=== PATIENT | female | born 1930 | race Two or more races ===

== ENCOUNTER 2019-08-03 14:47 | Emergency (ER) | payer MEDICARE, MEDICAID ==
[~2019-08-03] VITALS: Ht 165.1 cm; Wt 64.9 kg
--- NOTE | 2019-08-03 14:50 | NUR ---
PT [id number] FRM HOME, PER REPORT WITNESSED SYNCOPE WHILE HAVING BM. PT IS AAOX3 [id number] SPEAKING ONLY, NOT IN RESPIRATORY DISTRESS, HOOKED TO MONITOR, KEPT RESTED AND COMFORTABLE, WILL CONTINUE TO MONITOR.
--- NOTE | 2019-08-03 15:02 | NUR ---
AT BEDSIDE FOR EVAL.
--- NOTE | 2019-08-03 15:16 | NUR ---
BLOOD DRAWN AND SENT TO LAB.
[2019-08-03 15:23] LABS: BASOPHILS # (AUTO) 0.1 /CMM (0.0-0.2); BASOPHILS % (AUTO) 0.8 % (0.0-2.0); EOSINOPHILS % (AUTO) 5.1 % (0.0-6.0); HEMATOCRIT 39 % (33-45); HEMOGLOBIN 12.8 g/dL (11.5-14.8); LYMPHOCYTES # (AUTO) 1.3 /CMM (0.8-4.8); LYMPHOCYTES % (AUTO) 13.3 % (20.0-44.0); MEAN CORPUSCULAR HGB CONC 33 g/dl (31.0-36.0); MEAN CORPUSCULAR VOLUME 90 fL (82-100); MONOCYTES # (AUTO) 0.6 /CMM (0.1-1.30); MONOCYTES % (AUTO) 6.6 % (2.0-12.0); NEUTROPHILS # (AUTO) 7.2 /CMM (1.8-8.9); NEUTROPHILS % (AUTO) 74.2 % (43.0-81.0); PLATELET COUNT (AUTO) 399 /CMM (150-450); RED BLOOD CELL COUNT(AUTO) 4.28 MIL/uL (4.0-5.2); WHITE BLOOD COUNT (AUTO) 9.8 K/uL (4.3-11.0)
--- NOTE | 2019-08-03 15:30 | NUR ---
REPORT DEVELOPER AT BEDSIDE FOR XRAY.
--- NOTE | 2019-08-03 15:39 | NUR ---
URINAL GIVEN BUT UNABLE TO PROVIDE URINE SPECIMEN THIS TIME. PT RELATIVE REFUSE STRAIGHT CATH INSERTION.
[2019-08-03 15:45] LABS: CALCIUM, SERUM 9.1 mg/dL (8.5-10.1); CREATININE 0.8 mg/dL (0.6-1.3); POTASSIUM 3.4 mmol/L (3.5-5.1)
[2019-08-03 15:50] LABS: ALBUMIN 3.5 g/dL (3.4-5.0); BILIRUBIN,DIRECT 0.1 mg/dL (0.0-0.2); BILIRUBIN,TOTAL 0.3 mg/dL (0.2-1.0); TOTAL PROTEIN, SERUM 6.9 g/dL (6.4-8.2)
[2019-08-03] MEDS ORDERED: IOHEXOL-350 100 ML VIAL IV ONE (17:28)
--- NOTE | 2019-08-03 17:30 | NUR ---
PT IS WHEELED TO CT SCAN VIA [facility].
[2019-08-03 18:14] LABS: APPEARANCE,URINE CLEAR (CLEAR); BILIRUBIN,URINE NEGATIVE (NEGATIVE); BLOOD, URINE NEGATIVE Ery/uL (NEGATIVE); COLOR,URINE YELLOW (YELLOW); KETONES,URINE NEGATIVE (NEGATIVE); LEUKOCYTE ESTERASE ,URINE NEGATIVE (NEGATIVE); NITRITE, URINE NEGATIVE (NEGATIVE); PH,URINE 7.5 (5.0-8.0); PROTEIN,URINE NEGATIVE (NEGATIVE); UGLUCOSE NEGATIVE (NEGATIVE); UROBILINOGEN,URINE 0.2 EU/dL (0.2)
[2019-08-03] MEDS ORDERED: DOCUSATE SODIUM LIQ 100 MG/10 ML UDC ONE (18:22)
[2019-08-03] MEDS ORDERED: DOCUSATE SODIUM LIQ 100 MG/10 ML UDC NG ONE (18:30)
--- NOTE | 2019-08-03 18:46 | NUR ---
EMT AT BEDSIDE FOR EAR IRRIGATION.
--- NOTE | 2019-08-03 19:24 | NUR ---
IV removed. Catheter intact and site benign. Pressure and 4x4 applied to site. No bleeding noted. Patient discharged to home in stable condition. Written and verbal after care instructions given. Patient verbalizes understanding of instruction.
[2019-08-03 19:25] VITALS: BP 112/72
== END 2019-08-03 19:28 | disposition home or self-care (01) ==
LOC: ER 14:49
DX: R55 Syncope and collapse (principal); I10 Essential (primary) hypertension
CPT/HCPCS: 36415; 71275; 74022; 80048; 80076; 81001; 83880; 84484; 85025; 85378; 93005; 99284; Q9967; 81000-TC

== ENCOUNTER 2019-08-26 15:01 | Emergency (ER) | payer MEDICARE, OTHER ==
[~2019-08-26] VITALS: Ht 157.5 cm; Wt 64.9 kg
--- NOTE | 2019-08-26 15:09 | NUR ---
BIB FOR SYNCOPAL EPISODE, FAMILY CALLED 911, FAMILY STATES PATIENT HAS BEEN HAVING DIARRHEA, PATIENT C/O NAUSEA AND VOMITING. BS 220, TO ER BED 11, HOOKED TO MONITOR, CHANGED TO HOSP GOWN, PROVIDED W WARM BLANKET, AWAITING MD BAJWA.
--- NOTE | 2019-08-26 15:50 | NUR ---
DR ROGEL AT BEDSIDE
[2019-08-26] MEDS ORDERED: CITA10TA9 PO (15:59)
[2019-08-26] MEDS ORDERED: TRAM50TA2 PO (15:59)
[2019-08-26] MEDS ORDERED: CILO100T PO (15:59)
[2019-08-26] MEDS ORDERED: LOSA50TA39 PO (15:59)
[2019-08-26] MEDS ORDERED: METO25TA6 PO (15:59)
[2019-08-26] MEDS ORDERED: IV NS 0.9% 1,000 ML BAG IV ONE (16:00)
[2019-08-26 16:08] LABS: BASOPHILS # (AUTO) 0.1 /CMM (0.0-0.2); BASOPHILS % (AUTO) 0.8 % (0.0-2.0); EOSINOPHILS % (AUTO) 5.8 % (0.0-6.0); HEMATOCRIT 43 % (33-45); HEMOGLOBIN 14.1 g/dL (11.5-14.8); LYMPHOCYTES # (AUTO) 1.1 /CMM (0.8-4.8); LYMPHOCYTES % (AUTO) 12.3 % (20.0-44.0); MEAN CORPUSCULAR HGB CONC 33 g/dl (31.0-36.0); MEAN CORPUSCULAR VOLUME 91 fL (82-100); MONOCYTES # (AUTO) 0.6 /CMM (0.1-1.30); MONOCYTES % (AUTO) 6.3 % (2.0-12.0); NEUTROPHILS # (AUTO) 6.6 /CMM (1.8-8.9); NEUTROPHILS % (AUTO) 74.8 % (43.0-81.0); PLATELET COUNT (AUTO) 367 /CMM (150-450); RED BLOOD CELL COUNT(AUTO) 4.72 MIL/uL (4.0-5.2); WHITE BLOOD COUNT (AUTO) 8.8 K/uL (4.3-11.0)
[2019-08-26 16:19] LABS: CALCIUM, SERUM 9.4 mg/dL (8.5-10.1); CARBON DIOXIDE 28 mmol/L (21-32); CHLORIDE 98 mmol/L (98-107); CREATININE 0.9 mg/dL (0.6-1.3); GLUCOSE 198 mg/dL (74-106); POTASSIUM 4.3 mmol/L (3.5-5.1); SODIUM SERUM 136 mmol/L (136-145); UREA NITROGEN, BLOOD 14 mg/dL (7-18)
[2019-08-26 16:25] LABS: ALANINE AMINOTRANSFERASE 11 U/L (12-78); ALBUMIN 3.6 g/dL (3.4-5.0); ALKALINE PHOSPHATASE 87 U/L (46-116); ASPARTATE AMINOTRANSFERASE 11 U/L (15-37); BILIRUBIN,DIRECT 0.1 mg/dL (0.0-0.2); BILIRUBIN,TOTAL 0.3 mg/dL (0.2-1.0); LIPASE 85 U/L (73-393); TOTAL PROTEIN, SERUM 7.2 g/dL (6.4-8.2)
[2019-08-26] MEDS ORDERED: Z GUARD REMEDY 2 OZ OINT TP ONE (17:30)
[2019-08-26 18:06] LABS: APPEARANCE,URINE Clear (CLEAR); BILIRUBIN,URINE Negative (NEGATIVE); BLOOD, URINE Small Ery/uL (NEGATIVE); COLOR,URINE Yellow (YELLOW); KETONES,URINE Negative (NEGATIVE); LEUKOCYTE ESTERASE ,URINE Negative (NEGATIVE); NITRITE, URINE Negative (NEGATIVE); PH,URINE 6.5 (5.0-8.0); PROTEIN,URINE Negative (NEGATIVE); UGLUCOSE Negative (NEGATIVE)
[2019-08-26 18:13] LABS: BACTERIA,URINE Rare /HPF (None Seen); SQUAMOUS EPITHELIAL CELL,UR Few /HPF (None Seen); WBC,URINE NONE SEEN /HPF (0-3)
--- NOTE | 2019-08-26 18:52 | NUR ---
IV removed. Catheter intact and site benign. Pressure and 4x4 applied to site. No bleeding noted. Patient discharged to home with family in stable condition. Written and verbal after care instructions given. Patient and family verbalizes understanding of instruction.
--- NOTE | 2019-08-26 18:55 | NUR ---
Patient discharged to home in stable condition. Written and verbal after care instructions given. Patient verbalizes understanding of instruction.
--- NOTE | 2019-08-26 18:55 | NUR ---
IV removed. Catheter intact and site benign. Pressure and 4x4 applied to site. No bleeding noted.
[2019-08-26 18:57] VITALS: BP 115/65
== END 2019-08-26 18:57 | disposition home or self-care (01) ==
LOC: ER 15:06
DX: L97.929 Non-pressure chronic ulcer of unspecified part of left lower leg with unspecified severity (principal); R55 Syncope and collapse; I10 Essential (primary) hypertension; F03.90 Unspecified dementia, unspecified severity, without behavioral disturbance, psychotic disturbance, mood disturbance, and anxiety; Z79.899 Other long term (current) drug therapy
CPT/HCPCS: 36415; 71045; 80048; 80076; 81001; 83690; 84484; 85025; 85730; 87804 ×2; 93005; 93971 ×2; 96360; 99284; J7030; 81000-TC

== ENCOUNTER 2020-03-13 13:23 | Inpatient (IN) | payer MEDICARE, OTHER ==
[~2020-03-13] VITALS: Ht 157.5 cm; Wt 63.5 kg
[~2020-03-13 13:23] MED LIST: CILO100T PO; CITA10TA9 PO; LOSA50TA39 PO; METO25TA6 PO; TRAM50TA2 PO
[2020-03-13] MEDS ORDERED: IV NS 0.9% 500 ML BAG IV ONE (13:30)
[2020-03-13] MEDS ORDERED: OMEP20TA5 PO (13:35)
[2020-03-13] MEDS ORDERED: CLON0.1T PO (13:35)
--- NOTE | 2020-03-13 13:38 | NUR ---
GILBERTO FROM HOME TO ER BED 7. AAOX3. NOT IN RESP DISTRESS, BREATHING EVEN AND UNLABORED. BROUGHT IN FOR SYNCOPAL EPISODE. PER REPORT, PT WAS HAVING BM AND FOUND PT PASSED OUT. NO FALLS. NO TRAUMA. DENIES OF ANY PAIN. PT HOOKED ON MONITOR. MD WAS AT THE BEDSIDE FOR EVAL. ORDERS RECEIVED, NOTED AND CARRIED OUT. IV LINE OBTAINED ON L FOREARM 20G, BLOOD DRAWN AND GIVEN TO DICTAPHONE TYPIST AT BEDSIDE. EKG DONE BY EMT. PT ON MONITOR.
[2020-03-13 13:39] LABS: BASOPHILS # (AUTO) 0.1 /CMM (0.0-0.2); BASOPHILS % (AUTO) 0.5 % (0.0-2.0); EOSINOPHILS % (AUTO) 4.5 % (0.0-6.0); HEMATOCRIT 45 % (33-45); HEMOGLOBIN 14.7 g/dL (11.5-14.8); LYMPHOCYTES # (AUTO) 2.2 /CMM (0.8-4.8); LYMPHOCYTES % (AUTO) 17.4 % (20.0-44.0); MEAN CORPUSCULAR HGB CONC 32 g/dl (31.0-36.0); MEAN CORPUSCULAR VOLUME 92 fL (82-100); MONOCYTES # (AUTO) 0.7 /CMM (0.1-1.30); MONOCYTES % (AUTO) 5.9 % (2.0-12.0); NEUTROPHILS # (AUTO) 9.2 /CMM (1.8-8.9); NEUTROPHILS % (AUTO) 71.7 % (43.0-81.0); PLATELET COUNT (AUTO) 366 /CMM (150-450); RED BLOOD CELL COUNT(AUTO) 4.91 MIL/uL (4.0-5.2); WHITE BLOOD COUNT (AUTO) 12.8 K/uL (4.3-11.0)
--- NOTE | 2020-03-13 13:58 | NUR ---
AMEZCUA SWAB DONE AND SENT TO LAB
--- NOTE | 2020-03-13 14:03 | NUR ---
PLACED PT ON BED STEIN FOR URINE COLLECTION. PT IS UNABLE TO URINATE AT THIS TIME. MADE AWARE. COLLECT URINE WHEN PT HAVE THE URGE TO URINATE.
--- NOTE | 2020-03-13 14:24 | NUR ---
DAUGTHER GIVEN UPDATE RE PATIENT
[2020-03-13 14:29] LABS: CALCIUM, SERUM 9.1 mg/dL (8.5-10.1); CARBON DIOXIDE 22 mmol/L (21-32); CHLORIDE 99 mmol/L (98-107); CREATININE 1.1 mg/dL (0.6-1.3); GLUCOSE 264 mg/dL (74-106); POTASSIUM 3.5 mmol/L (3.5-5.1); SODIUM SERUM 134 mmol/L (136-145); UREA NITROGEN, BLOOD 10 mg/dL (7-18)
--- NOTE | 2020-03-13 14:31 | NUR ---
NURSING SUP CALLED FOR BED
[2020-03-13 14:35] LABS: ALANINE AMINOTRANSFERASE 9 U/L (12-78); ALBUMIN 3.7 g/dL (3.4-5.0); ALKALINE PHOSPHATASE 103 U/L (46-116); ASPARTATE AMINOTRANSFERASE 12 U/L (15-37); BILIRUBIN,DIRECT 0.1 mg/dL (0.0-0.2); BILIRUBIN,TOTAL 0.3 mg/dL (0.2-1.0)
[2020-03-13] MEDS ORDERED: CLONIDINE HCL 0.1 MG TABLET PO PRN (15:00)
[2020-03-13] MEDS ORDERED: TRAMADOL HCL 50 MG TABLET PO PRN (15:00)
--- NOTE | 2020-03-13 15:15 | NUR ---
ROOM ASSIGNMENT: 102-TELE
[2020-03-13] MEDS ORDERED: MAGNESIUM HYDROXIDE 30 ML UDC PO PRN (15:30)
[2020-03-13] MEDS ORDERED: ACETAMINOPHEN 325 MG TABLET PO PRN (15:30)
[2020-03-13] MEDS ORDERED: Z GUARD REMEDY 2 OZ OINT TP PRN (15:30)
[2020-03-13] MEDS ORDERED: ZOLPIDEM TARTRATE 5 MG TABLET PO PRN (15:30)
[2020-03-13] MEDS ORDERED: HYDROCODONE/APAP 5/325MG 1 EACH TABLET PO PRN (15:30)
[2020-03-13] MEDS ORDERED: ONDANSETRON HCL/PF 4 MG/2 ML VIAL IVP PRN (15:30)
[2020-03-13] MEDS ORDERED: MAG HYDROX/AL HYDROX/SIMETH 30 ML UDC PO PRN (15:30)
--- NOTE | 2020-03-13 15:37 | NUR ---
REPORT GIVEN TO REBEL MONZON FOR FRANCIS.
[2020-03-13 16:00] VITALS: BP 194/82
--- NOTE | 2020-03-13 16:00 | NUR ---
PT TRANSPORTED TO UNIT ON GURNEY WITH EMT AND RN AT BEDSIDE W/ ACLS PROTOCOL. NAD NOTE DURING TRANSPORT.
--- NOTE | 2020-03-13 16:05 | NUR ---
Received patient via [facility]. A/O x4, Uruguayan speaker, on room air, tolerating well, no s/sx of distress noted, no SOB. Denies pain, IV on r hand noted, patent and intact. Safety measures implemented, bed in lowest position, will cont to monitor
[2020-03-13] MEDS: METOPROLOL TARTRATE 25 MG TABLET PO SCH (16:41)
[2020-03-13 17:40] VITALS: BP 186/94
--- NOTE | 2020-03-13 18:40 | NUR ---
Patient BP is 186/94, charge nurse notified, called [facility] to reach MD
--- NOTE | 2020-03-13 19:30 | NUR ---
RN CLOSING NOTE Patient remains in bed, no change of status noted, tolerating room air well, with saturation of 100%, IV flushed and patent, skin is intact.Safety measures implemented, call light in reach, bed in lowest position, hob elevated, will endorse to PM shift RN for FRANCIS
--- NOTE | 2020-03-13 19:30 | NUR ---
telegraph office telephone clerk opening note received patient in isolation for suspected covid. received in bed. a/ox4. Moldovan speaking. tolerating room air. respirations are even and unlabored. no s/s sob noted. no /o pain at this. external tele monitor reads sinus north hr 56. in no apparent distress. iv access i left wrist #20 patent and saline locked.bed is low and locked, hob elevateed in semi fowlers, side rials up x2. call light within reach. informed patient on how to use call light. informed patient we need to collect a urine specimen. will continue to monitor.
[2020-03-13 20:00] VITALS: BP 188/81
--- NOTE | 2020-03-13 20:00 | NUR ---
program director cable television note patient refused temperature to be taken at 2000 vitals. explain risk and benefits, continues to refuse. states once when she came in should be sufficient enough. will try again at 0000 vital signs.
--- NOTE | 2020-03-13 20:21 | NUR ---
telephone switchboard operator note patients bp 185/92. informed MD that she received metoprolol 25mg at 1641. patient also stated has not taken home bp meds. MD telephone order hydralazine 10mg IV q4hr prn. order read back , noted and carried out.
[2020-03-13] MEDS ORDERED: hydrALAZINE HCL IV 20 MG VIAL IV PRN (20:30)
--- NOTE | 2020-03-13 22:19 | NUR ---
maintenance mechanic telephone note called molten iron pourer MD Dr. solis that patient is very agitated and anxious. she did not receive her celexa today. MD telephone ordered 10mg celexa PO one time as well as xanax 0.5mg PO one time. order read back noted and carried out.
[2020-03-13] MEDS ORDERED: ALPRAZOLAM 0.25 MG TABLET PO ONE (22:30)
[2020-03-13] MEDS ORDERED: CITALOPRAM HYDROBROMIDE 10 MG TABLET PO ONE (22:30)
[2020-03-14] VITALS (7 sets, daily range): BP systolic 119–182; BP diastolic 60–81
--- NOTE | 2020-03-14 00:49 | NUR ---
CONCRETE BATCHING PLANT OPERATOR NOTE INFORMED KNIFE BLADE POLISHER MD DR. HENRY THE PATIENTS VTE SCORE 3 AND IF HE'D LIKE TO ORDER ANY CHEMICAL PROPHYLAXIS, MD TELEPHONE ORDER HEPARIN 5000 UNITS SQ BID. ORDER READ BACK NOTED AND CARRIED OUT.
--- NOTE | 2020-03-14 03:27 | NUR ---
telegraphic typewriter mechanic note informed MD that patient removed her tele monitor. she was explained the purpose of the tele monitor, the risk the benefits and tried to reapply the tele box but patient continues to refuse and pull off leads. MD also informed that patient removed iv.
[2020-03-14 05:02] LABS: ALBUMIN 3.5 g/dL (3.4-5.0); BASOPHILS # (AUTO) 0.1 /CMM (0.0-0.2); BASOPHILS % (AUTO) 0.4 % (0.0-2.0); BILIRUBIN,TOTAL 0.4 mg/dL (0.2-1.0); CALCIUM, SERUM 9.1 mg/dL (8.5-10.1); CREATININE 0.6 mg/dL (0.6-1.3); EOSINOPHILS % (AUTO) 3.1 % (0.0-6.0); HEMATOCRIT 40 % (33-45); HEMOGLOBIN 13.3 g/dL (11.5-14.8); LYMPHOCYTES # (AUTO) 1.8 /CMM (0.8-4.8); LYMPHOCYTES % (AUTO) 13.8 % (20.0-44.0); MAGNESIUM 2.2 mg/dL (1.8-2.4); MEAN CORPUSCULAR HGB CONC 33 g/dl (31.0-36.0); MEAN CORPUSCULAR VOLUME 90 fL (82-100); MONOCYTES # (AUTO) 0.8 /CMM (0.1-1.30); MONOCYTES % (AUTO) 6.3 % (2.0-12.0); NEUTROPHILS % (AUTO) 76.4 % (43.0-81.0); PHOSPHORUS 2.9 mg/dL (2.5-4.9); PLATELET COUNT (AUTO) 349 /CMM (150-450); POTASSIUM 3.3 mmol/L (3.5-5.1); RED BLOOD CELL COUNT(AUTO) 4.49 MIL/uL (4.0-5.2); WHITE BLOOD COUNT (AUTO) 13.1 K/uL (4.3-11.0)
[2020-03-14 05:14] LABS: THYROID STIMULATING HORMONE 3.418 uIU/mL (0.358-3.74)
--- NOTE | 2020-03-14 06:21 | NUR ---
local telephone operator closing note isolation for suspected covid. in bed. a/ox3 tolerating room air. respirations are even and unlabored. no sob noted. no c/o pain t/o shift. removed tele monitor, educated, continues to refuse, md aware. no distress. iv access removed by patient, refuses another access, md aware .bed is low and locked, hob elevated in semi fowlers, side rials up x2. call light within reach. unable to obtain urine sample patient is incontinent. will endorse to next shift.
--- NOTE | 2020-03-14 07:10 | NUR ---
RN OPENING NOTES RECEIVED PATIENT SLEEPING IN BED. A/O X 1, CONFUSED. [place]IBR[place] SPEAKING. PATIENT REFUSES TELE MONITOR. PATIENT ON ROOM AIR TOLERATING WELL. NO S/S OF DISTRESS. NO SOB NOTED. NO IV NOTE. SAFETY MEASURES IN PLACED, BED IN LOWEST POSITION AND LOCKED, SIDE RAILS UP X 2. WILL CONTINUE TO MONITOR.
--- NOTE | 2020-03-14 07:30 | NUR ---
RN NOTE PATIENT REMOVES TELE MONITOR, EDUCATED PATIENT ON TELE , CONTINUES TO REFUSE.
[2020-03-14] MEDS: PANTOPRAZOLE 40 MG TABLET.DR PO SCH (08:07)
[2020-03-14] MEDS ORDERED: HEPARIN SODIUM, PORCINE 5000 UNITS/1 ML VIAL SQ SCH (09:00)
[2020-03-14] MEDS: LOSARTAN POTASSIUM 50 MG TABLET PO SCH (09:09)
[2020-03-14] MEDS: METOPROLOL TARTRATE 25 MG TABLET PO SCH ×2 (09:10→17:36)
[2020-03-14] MEDS: CILOSTAZOL 100 MG TABLET PO SCH ×2 (09:21→17:33)
[2020-03-14] MEDS: CITALOPRAM HYDROBROMIDE 10 MG TABLET PO SCH (09:21)
[2020-03-14] MEDS ORDERED: POTASSIUM CHLORIDE 20 MEQ TAB.PRT.SR PO SCH (10:00)
--- NOTE | 2020-03-14 12:00 | NUR ---
RN NOTES Patients daughter Carly called and she spoke to her mother. In addition daughter wants to speak with MD, RELATEd MESSAGE, MD made aware.
--- NOTE | 2020-03-14 15:50 | NUR ---
PATIENT REFUSED STRAIGHT CATH FOR URINE CX, MULTIPLE ATTEMPTS.
--- NOTE | 2020-03-14 18:07 | NUR ---
COLLECTED URINE,PLACED IN SPECIMEN FRIDGE, CALLED AND INFORMED LAB FOR STRESS ENGINEER
--- NOTE | 2020-03-14 19:18 | NUR ---
RN NOTES ENDORSED PATIENT TO PM NURSE. A/O X 1 CONFUSED, [place] SPEAKER. PATIENT REFUSED NEW IV, EDUCATED ON BENEFITS, STILL REFUSED. PATIENT REMOVED TELE MONITOR AND REFUSED TO KEEP IN PLACE, MD AWARE. NO S/S OF DISTRESS, NO SOB, SAFETY MEASURE IN PLACE, SIDE RAILS UP X 2, CALL LIGHT WITHIN REACH. .
--- NOTE | 2020-03-14 19:30 | NUR ---
RN OPENING NOTES Received the client resting in bed. A/O x3. The client has is refusing IV insertion. Client is refusing Chest leads for external telemetry reading. Client is cooperative and reasonable besides refusing other procedures. MD is aware. The client denies pain, no /s/s of pain. No s/s of distress at this time. All needs rendered at this time. Will continue to monitor.
[2020-03-14 19:59] LABS: APPEARANCE,URINE TURBID (CLEAR); BILIRUBIN,URINE SMALL (NEGATIVE); BLOOD, URINE TRACE-INTA Ery/uL (NEGATIVE); COLOR,URINE YELLOW (YELLOW); KETONES,URINE NEGATIVE (NEGATIVE); LEUKOCYTE ESTERASE ,URINE LARGE (NEGATIVE); NITRITE, URINE NEGATIVE (NEGATIVE); PH,URINE 8.5 (5.0-8.0); PROTEIN,URINE 100 mg/dl (NEGATIVE); UGLUCOSE NEGATIVE (NEGATIVE)
[2020-03-14 20:00] LABS: BACTERIA,URINE Moderate /HPF (None Seen); SQUAMOUS EPITHELIAL CELL,UR Few /HPF (None Seen); WBC,URINE TOO NUMEROUS TO COUN /HPF (0-3)
[2020-03-14] MEDS ORDERED: ENOXAPARIN SODIUM 40 MG/0.4 ML DISP.SYRIN SQ SCH (22:00)
[2020-03-15] VITALS: BP 154/85
--- NOTE | 2020-03-15 03:35 | NUR ---
0335 RECEIVED A CALL FROM LAB C/O STEPHANIE DOE SWAB RESULT IS NEGATIVE.
--- NOTE | 2020-03-15 03:45 | NUR ---
0345 CLOTHES SEPARATOR MALGORZATA NOTIFIED OF COVID NEGATIVE RESULT.
--- NOTE | 2020-03-15 03:48 | NUR ---
RN NOTES Called the daughter of the client at [phone] to inform her that the covid results for the client are negative at this time.
[2020-03-15 04:00] VITALS: BP 157/78
--- NOTE | 2020-03-15 06:44 | NUR ---
RN CLOSING NOTES client is resting in bed. A/O x3. The client refused to have an IV during. Client refused Chest leads for external telemetry reading. Hospitalist per previous nurse. The client denies pain, no /s/s of pain. No s/s of distress at this time. All needs have been rendered at this time, will endorse the incoming nurse.
[2020-03-15 07:09] LABS: CALCIUM, SERUM 9.3 mg/dL (8.5-10.1); CREATININE 0.6 mg/dL (0.6-1.3); POTASSIUM 3.7 mmol/L (3.5-5.1)
--- NOTE | 2020-03-15 07:39 | NUR ---
RELAYED TO RHIANNON WASSERMAN UA RESULT AND PATIENT COVID NEGATIVE,HE WILL DISCHARGE PT. HOME TODAY,PRIMARY MADE AWARE.
--- NOTE | 2020-03-15 07:56 | NUR ---
RN NOTE Per Ab, N.P. patient is to have Rocephin 1G IM ONE TIME NOW for UTI. Patient is planned to be discharged today. Orders repeated back and will carry out.
[2020-03-15 08:00] VITALS: BP 160/99
[2020-03-15] MEDS ORDERED: CEFTRIAXONE 1 G VIAL IM ONE (09:00)
[2020-03-15] MEDS ORDERED: LIDOCAINE 1% INJ 50 ML MDV IJ ONE (09:08)
[2020-03-15 09:52] VITALS: BP 160/99
[2020-03-15] MEDS: LOSARTAN POTASSIUM 50 MG TABLET PO SCH (09:52)
[2020-03-15] MEDS: PANTOPRAZOLE 40 MG TABLET.DR PO SCH (09:52)
[2020-03-15] MEDS: CILOSTAZOL 100 MG TABLET PO SCH (09:52)
[2020-03-15] MEDS: METOPROLOL TARTRATE 25 MG TABLET PO SCH (09:52)
[2020-03-15] MEDS: CITALOPRAM HYDROBROMIDE 10 MG TABLET PO SCH (09:54)
--- NOTE | 2020-03-15 10:38 | NUR ---
HELP DESK REP NOTE Patient is medically cleared for discharge. Patient is A/O x2, with periods of confusion, showing no signs of acute distress or SOB, stable on RA. Rocephin 1G IM given to patient prior to discharge and monitored the patient for 30 min. Patient showed no s/sx of medication reaction. Patient has no IV line. ID band removed. DC instructions provided to daughter Carly and she signed the DC paperwork, all belongings are with the patient. Prescription with daughter. All patient needs met, all due medications given, patient kept clean and dry throughout the shift. Patient left with family in private car en route to home. Addendum: 03/15/20 at 1200 by AXEL CUI RN Skin assessed, and skin remains intact.
== END 2020-03-15 10:30 | disposition home health service (06) | DRG 641 ==
LOC: ER 13:25 → TELE1 15:19 → MEDSG1 03-14 13:04
PROVIDERS: ADMIT Internal Medicine; ATTEND Nurse Practitioner Acute Care
DX: E86.0 Dehydration (principal); N17.9 Acute kidney failure, unspecified; N39.0 Urinary tract infection, site not specified; E87.1 Hypo-osmolality and hyponatremia; F03.90 Unspecified dementia, unspecified severity, without behavioral disturbance, psychotic disturbance, mood disturbance, and anxiety; Z86.73 Personal history of transient ischemic attack (TIA), and cerebral infarction without residual deficits; I11.0 Hypertensive heart disease with heart failure; I50.9 Heart failure, unspecified; Z79.02 Long term (current) use of antithrombotics/antiplatelets; Z87.891 Personal history of nicotine dependence; I73.9 Peripheral vascular disease, unspecified; E78.5 Hyperlipidemia, unspecified; E87.6 Hypokalemia; I70.0 Atherosclerosis of aorta; F32.9 Major depressive disorder, single episode, unspecified; L92.9 Granulomatous disorder of the skin and subcutaneous tissue, unspecified
CPT/HCPCS: 36415; 70450-TC; 71045-TC; 80048-TC; 80053-TC; 80061-TC; 80076-TC; 81000-TC; 83735-TC; 84100-TC; 84443-TC; 84484-TC; 85025-TC; 87081-TC; 87086-TC; G0378; J0360; J0696; J1644; J1650; J3490; J7040; U0003-CS

== ENCOUNTER 2022-04-20 13:18 | Emergency (ER) | payer MEDICARE, OTHER ==
[~2022-04-20] VITALS: Ht 160 cm; Wt 65.3 kg
[~2022-04-20 13:18] MED LIST changes: +CLON0.1T PO; +OMEP20TA5 PO
--- NOTE | 2022-04-20 13:40 | NUR ---
LIZY FROM HOME FOR HYPERGLYCEMIA, HOSPICE PATIENT FOR TERMINAL DEMENTIA, BS 306 UPON ARRIVAL. THE PATIENT IS ALERT AND ORIENTED X2. DENIES PAIN. IN ROOM AIR AND DENIES SOB. RESPIRATION REGULAR AND UNLABORED. THE PATIENT IS ATTACHED TO THE MONITOR. WARM BLANKET PROVIDED FOR COFMORT. WILL CONTINUE TO MONITOR THE PATIENT.
--- NOTE | 2022-04-20 13:57 | NUR ---
ACCJEAN-PAUL 306. DR MADISON AWARE.
[2022-04-20] MEDS ORDERED: IV NS 0.9% 1,000 ML BAG IV ONE (14:00)
[2022-04-20 14:38] LABS: BASOPHILS # (AUTO) 0.1 K/uL (0.0-0.2); BASOPHILS % (AUTO) 0.6 % (0.0-2.0); EOSINOPHILS % (AUTO) 2.3 % (0.0-6.0); HEMATOCRIT 41 % (33-45); HEMOGLOBIN 13.2 g/dL (11.5-14.8); LYMPHOCYTES # (AUTO) 1.2 K/uL (0.8-4.8); LYMPHOCYTES % (AUTO) 9.3 % (20.0-44.0); MEAN CORPUSCULAR HGB CONC 32 g/dl (31.0-36.0); MEAN CORPUSCULAR VOLUME 91 fL (82-100); MONOCYTES # (AUTO) 0.6 K/uL (0.1-1.30); MONOCYTES % (AUTO) 4.8 % (2.0-12.0); NEUTROPHILS # (AUTO) 10.9 K/uL (1.8-8.9); PLATELET COUNT (AUTO) 337 K/uL (150-450); RED BLOOD CELL COUNT(AUTO) 4.54 MIL/uL (4.0-5.2); WHITE BLOOD COUNT (AUTO) 13.1 K/uL (4.3-11.0)
[2022-04-20 14:59] LABS: ALANINE AMINOTRANSFERASE 13 U/L (12-78); ALBUMIN 3.3 g/dL (3.4-5.0); ALKALINE PHOSPHATASE 119 U/L (46-116); ASPARTATE AMINOTRANSFERASE 10 U/L (15-37); BILIRUBIN,TOTAL 0.6 mg/dL (0.2-1.0); CARBON DIOXIDE 26 mmol/L (21-32); CHLORIDE 101 mmol/L (98-107); CREATININE 0.8 mg/dL (0.6-1.3); GLUCOSE 298 mg/dL (74-106); POTASSIUM 3.3 mmol/L (3.5-5.1); SODIUM SERUM 139 mmol/L (136-145); TOTAL PROTEIN, SERUM 6.9 g/dL (6.4-8.2); UREA NITROGEN, BLOOD 16 mg/dL (7-18)
--- NOTE | 2022-04-20 15:44 | NUR ---
URINE COLLECTED AND SENT TO LAB
[2022-04-20] MEDS ORDERED: INSULIN REGULAR, HUMAN 100 UNIT/ML 10 ML VIAL SQ ONE (16:00)
[2022-04-20 16:07] LABS: BILIRUBIN,URINE NEGATIVE (NEGATIVE); COLOR,URINE YELLOW (YELLOW); LEUKOCYTE ESTERASE ,URINE SMALL (NEGATIVE); NITRITE, URINE POSITIVE (NEGATIVE); PH,URINE 6.5 (5.0-8.0); PROTEIN,URINE TRACE mg/dl (NEGATIVE); UGLUCOSE 100 MG/DL mg/dL (NEGATIVE); UROBILINOGEN,URINE 0.2 EU/dL (0.2)
[2022-04-20 16:22] LABS: BACTERIA,URINE Many /HPF (None Seen); SQUAMOUS EPITHELIAL CELL,UR Few /HPF (None Seen)
[2022-04-20] MEDS ORDERED: CEPHALEXIN MONOHYDRATE 500 MG CAPSULE PO ONE ×2 (17:30→17:36)
--- NOTE | 2022-04-20 17:35 | NUR ---
BLOOD SUGAR IS 212. DR HINKLE MADE AWARE.
[2022-04-20] MEDS ORDERED: POTASSIUM CHLORIDE 20 MEQ TAB.PRT.SR PO ONE ×2 (17:36→18:00)
[2022-04-20] MEDS ORDERED: POTASSIUM CHLORIDE 10 MEQ TABLET.SA ONE (17:37)
[2022-04-20] MEDS ORDERED: CEPH500C2 PO (17:50)
--- NOTE | 2022-04-20 18:07 | NUR ---
Patient discharged to home in stable condition. Written and verbal after care instructions given. Patient verbalizes understanding of instruction. IV removed. Catheter intact and site benign. Pressure and 4x4 applied to site. No bleeding noted. Skelton catheter removed, pt tolerated well
[2022-04-20 18:08] VITALS: BP 142/84
--- NOTE | 2022-04-20 18:29 | NUR ---
LAB CALLED FOR LACTIC ACID 2.2. PT ALREADY DISCHARGED.
[2022-04-20 19:00] LABS: BILIRUBIN,DIRECT 0.2 mg/dL (0.0-0.2)
== END 2022-04-20 18:09 | disposition home or self-care (01) ==
LOC: ER 14:09
DX: R73.9 Hyperglycemia, unspecified (principal); E87.6 Hypokalemia; N39.0 Urinary tract infection, site not specified; F03.90 Unspecified dementia, unspecified severity, without behavioral disturbance, psychotic disturbance, mood disturbance, and anxiety; I10 Essential (primary) hypertension; Z79.899 Other long term (current) drug therapy
CPT/HCPCS: 99285; 96360; 71045; 93005; 82248; 85025; 87077; 87040 ×2; 87086; 82010; 83605 ×2; 87186 ×2; 81001; 36415; 80053; 84484; 82962 ×3; 96372; J7030; J1815